=== PATIENT | male | born 1985 | race Caucasian/White ===

== ENCOUNTER 2017-09-16 13:00 | Emergency (ER) | payer OTHER ==
[~2017-09-16] VITALS: Ht 175.3 cm; Wt 106.8 kg
--- NOTE | 2017-09-16 14:02 | REP ---
Left elbow five views : There is no fracture or dislocation. Mineralization and joint spaces are normal. There are no calcifications or foreign bodies. Impression: Negative left elbow . Signed by Shaquille Rodriguez MD 09/16/2017 01:54 P
--- NOTE | 2017-09-16 14:03 | REP ---
Left shoulder three views : There is no fracture or dislocation. Mineralization and joint spaces are normal. There are no calcifications or foreign bodies. Impression: Negative left shoulder . Signed by Shaquille Rodriguez MD 09/16/2017 01:55 P
[2017-09-16] MEDS ORDERED: IBUP80TA PO (14:11)
[2017-09-16] MEDS ORDERED: CYCL10TA PO (14:11)
[2017-09-16 14:23] VITALS: BP 137/78
== END 2017-09-16 14:26 | disposition home or self-care (01) ==
LOC: M ED 13:00
DX: S43.402A Unspecified sprain of left shoulder joint, initial encounter (principal); S50.02XA Contusion of left elbow, initial encounter; W00.0XXA Fall on same level due to ice and snow, initial encounter; Y92.89 Other specified places as the place of occurrence of the external cause; Y93.89 Activity, other specified; Y99.0 Civilian activity done for income or pay; Z88.5 Allergy status to narcotic agent; F17.210 Nicotine dependence, cigarettes, uncomplicated

== ENCOUNTER 2018-03-03 08:30 | Emergency (ER) | payer OTHER ==
[2018-03-03] MEDS: METOCLOPRAMIDE INJ 10MG/2ML VIAL (J2765) IV (08:57)
[2018-03-03] MEDS: diphenhydrAMINE INJ 50MG/ML VIAL (J1200) IV (08:57)
[2018-03-03] MEDS: NS 1,000 ML IV (08:57)
[2018-03-03] MEDS: KETOROLAC 30 MG/ML VIAL (J1885) IV (09:25)
== END 2018-03-03 10:42 | disposition home or self-care (01) ==
LOC: M ED 08:30
DX: G43.909 Migraine, unspecified, not intractable, without status migrainosus (principal); K64.8 Other hemorrhoids; Z88.5 Allergy status to narcotic agent
CPT/HCPCS: J1200